=== PATIENT | male | born 1980 | race Caucasian/White ===

== ENCOUNTER → 2023-07-29 15:22 | Outpatient (CLI) | payer OTHER, SELFPAY ==
--- NOTE | 2023-07-29 15:24 | DI.MRI.S_ITS ---
PROCEDURE: MR KNEE LT WO CON INDICATIONS: Unspecified internal derangement of left knee TECHNIQUE: Noncontrast sagittal PD fast spin echo and T2 fast spin echo with fat saturation, sagittal 3-D FLASH with fat saturation; coronal T1 spin echo and PD fast spin echo with fat saturation, and axial PD fast spin echo with fat saturation through the knee. COMPARISON: None. FINDINGS: Image quality: Excellent. Menisci: Peripheral displacement of medial meniscus bowing medial collateral ligament is seen. Oblique tear involving posterior horn of medial meniscus is seen extending to superior articulating surface. The lateral meniscus is intact. The meniscal root ligaments appear intact. Cruciate ligaments: The anterior cruciate ligament is thickened. The posterior cruciate ligament is intact. Medial structures: The medial collateral ligament appears thickened near its femoral insertion with surrounding edema. Visualized portions of the pes anserinus tendons appear normal. No abnormal bursal fluid. Lateral structures: The lateral collateral ligament, long and short heads of the biceps femoris tendon appear intact. The popliteus tendon appears normal. Iliotibial band appears normal. Anterior structures: The quadriceps and patellar tendons appear intact. Patellar alignment is normal. No femoral trochlear dysplasia or ventral trochlear prominence. No edema in the infrapatellar fat pad. Bones and cartilage: No bone marrow contusions or fractures. Low-grade chondromalacia in medial femoral tibial compartment and lateral portion of patellofemoral compartment is seen. Joint space: There is physiologic knee joint fluid. No Quintero's cyst. Normal appearing synovial plicae are incidentally noted. IMPRESSION: 1. Heart sounds oblique tear involving posterior horn of medial meniscus extending to superior articulating surface. The lateral meniscus is intact. 2. Low-grade ACL sprain. No ACL rupture. The PCL is intact. 3. Low to moderate grade proximal MCL sprain/partial-thickness tear. 4. 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 No fracture or dislocation. No significant joint effusion. Dictated by: Abad Oakes M.D. on 07/29/2023 at 22:30 Approved by: Abad Oakes M.D. on 07/29/2023 at 22:33
== END ==
PROVIDERS: PCP Family Medicine; Referring Provider Orthopaedic Surgery; Visit Provider Orthopaedic Surgery
DX: S83.242A Other tear of medial meniscus, current injury, left knee, initial encounter (principal); S83.512A Sprain of anterior cruciate ligament of left knee, initial encounter; S83.412A Sprain of medial collateral ligament of left knee, initial encounter; M22.42 Chondromalacia patellae, left knee; M23.92 Unspecified internal derangement of left knee
CPT/HCPCS: 73721